=== PATIENT | male | born 1950 | race Caucasian/White ===

== ENCOUNTER 2016-09-04 09:57 | Day surgery (SDC) | payer MEDICARE, OTHER ==
[~2016-09-04] VITALS: Ht 185.4 cm; Wt 91.6 kg
[~2016-09-04 09:57] MED LIST: ASPI-482 PO; BUPIVAC MPF-EPI 0.5%-1:200000 30 ML VIAL. ONE; CEFAZOLIN 2GM PREMIX 50 ML IV PRN; CHOL20004 PO; DEXAMETHASONE SOD PHOS 20 MG/5 ML VIAL. ONE; FAMOTIDINE 20 MG/2 ML VIAL ONE; FENTANYL PF 100 MCG/2 ML VIAL. IV PRN; FENTANYL PF 100 MCG/2 ML VIAL. ONE; FLAV3.7O MC; HYDROMORPHONE 2 MG/ML VIAL. IV PRN; IV RINGERS,LACTATED 1000ML 1,000 ML IV SCH; LIDOCAINE 1% 1 ML SYRINGE. ID PRN; LIDOCAINE 2% 100 MG/5 ML DISP.SYRIN. ONE; METF500T4 PO; MIDAZOLAM HCL 2 MG/2 ML VIAL. ONE; MORPHINE SULFATE 2 MG/ML DISP.SYRIN. IV PRN; OMEG10006 PO; ONDANSETRON PF 4 MG/2 ML VIAL. IV PRN; ONDANSETRON PF 4 MG/2 ML VIAL. ONE; PROCHLORPERAZINE 10 MG/2 ML VIAL. IV PRN; PROPOFOL 20 ML IV ONE; SIMV40TA PO
[2016-09-04] MEDS ORDERED: APIX2.5T PO (10:22)
[2016-09-04] MEDS ORDERED: METF850T2 PO (10:27)
[2016-09-04] MEDS ORDERED: HYDR12.53 PO (10:28)
[2016-09-04] MEDS ORDERED: LOSA25TA4 PO (10:28)
[2016-09-04 10:36] LABS: BASO % 1 % (0-3); EOS % 1 % (0-3); HEMATOCRIT 35.5 % (39.0-53.0); HEMOGLOBIN 11.8 g/dL (13.0-17.5); LYMPH # 1.6 x10^3/uL (1.0-4.8); LYMPH % 30 % (24-48); MEAN CORPUSCULAR HEMOGLOBIN 26 pg (25-35); MEAN CORPUSCULAR HGB CONC 33 g/dL (31-37); MEAN CORPUSCULAR VOLUME 78 fL (79-100); MONO % 10 % (0-9); NEUT % 59 % (31-73); PLATELET COUNT 96 x10^3/uL (140-400); RED BLOOD COUNT 4.54 x10^6/uL (4.30-5.70); RED CELL DISTRIBUTION WIDTH 15.3 % (11.5-14.5); WHITE BLOOD COUNT 5.3 x10^3/uL (4.0-11.0)
[2016-09-04 10:38] LABS: CALCIUM 9.2 mg/dL (8.5-10.1); GFR 74.8; POTASSIUM 3.9 mmol/L (3.5-5.1)
[2016-09-04] MEDS ORDERED: PROPOFOL 20 ML IV ONE (11:09)
[2016-09-04] MEDS ORDERED: NEOSTIGMINE METHYLSULFATE 5 MG/5 ML SYRINGE. ONE (11:18)
[2016-09-04] MEDS ORDERED: GLYCOPYRROLATE 1 MG/5 ML VIAL. ONE (11:18)
[2016-09-04] MEDS ORDERED: SEVOFLURANE 31 TO 60 MINUTES. IH ONE (11:51)
[2016-09-04] MEDS: FENTANYL PF 100 MCG/2 ML VIAL. IV PRN ×2 (12:11→12:28)
[2016-09-04] MEDS ORDERED: ACETAMINOPHEN INTRAVENOUS 100 ML IV ONE ×2 (12:15→13:15)
--- NOTE | 2016-09-04 12:17 | DISCH ---
DISCHARGE INSTRUCTIONS Condition on Discharge Condition on Discharge: Stable Activity After Discharge Activity Instructions for Disc: Activity as tolerated, Avoid exertion Lifting Instructions after Dis: No heavy lifting Driving Instructions after Dis: Do not drive (3-4 days) Diet after Discharge Diet after Discharge: Regular Wound Incision Care Wound/Incision Care: Ice to area for comfort Other wound/incision instructi: november shower Wednesday Follow-Up Follow up with: Yaw next week ALONSO DOTSON MD Sep 04, 2016 12:17
--- NOTE | 2016-09-04 12:24 | PDOC ---
BRIEF OPERATIVE NOTE Date: Sep 04, 2016 Pre-Op Diagnosis left inguinal hernia Post-Op Diagnosis same, indirect, lipoma of cord Procedure Performed repair with mesh Surgeon Yaw Anesthesia Type: General Blood Loss 10cc IV Fluid 800cc Specimens Obtained cord lipoma Findings indirect hernia, cord lipoma Complications none Additional Remarks # [id number] ALONSO DOTSON MD Sep 04, 2016 12:24
[2016-09-04] MEDS ORDERED: OXYC-323 PO (12:26)
[2016-09-04] MEDS ORDERED: OXYCODONE/APAP 5/325 TABLET. PO ONE (12:30)
[2016-09-04 12:55] VITALS: BP 113/58
--- NOTE | 2016-09-04 17:01 | OP ---
DATE OF SURGERY: 09/04/2016 PREOPERATIVE DIAGNOSIS: Left inguinal hernia. POSTOPERATIVE DIAGNOSES: Left inguinal hernia, indirect, and lipoma of the cord. PROCEDURE: Repair of mesh, excision lipoma of the cord. SURGEON: Alonso Dotson M.D. ANESTHESIA: General. ESTIMATED BLOOD LOSS: 10. IV FLUID: 800. INDICATIONS: The patient is a 66-year-old with left inguinal fullness and pain, brought for repair. OPERATIVE FINDINGS: A small indirect hernia sac was identified. A large cord lipoma was present. DESCRIPTION OF PROCEDURE: The patient brought to the operating suite, given a general endotracheal anesthetic, and the left groin was prepped and draped in usual sterile fashion. 0.5% Marcaine with epinephrine was used to infiltrate the skin and subcutaneous tissue along the incision line. Incision was made, dissection carried down to the external oblique fascia. Bleeders were cauterized as identified. The fascia was opened in direction of its fibers, extended through the external ring. Cord structures were swept off the pubis and a [place] drain placed around it. A large cord lipoma was harvested with LigaSure dissection. An indirect hernia sac was identified, skeletonized and reduced. This was held in reduction with a small piece of mesh. The precut "keyhole" patch was then placed over the floor of the canal. The slit closed with a single 2-0 PDS stitch and the area checked for adequate hemostasis. When present and a correct sponge count had been obtained, the cord was returned to its normal anatomical position. External oblique fascia closed over a running fashion with 3-0 Vicryl. Subq approximated with 3-0 Vicryl, skin closed with a subcuticular 4-0 Monocryl. Steri-Strips and sterile dressings applied. Prior to emergence from anesthesia, digital rectal exam failed to reveal evidence of prostatic enlargement or nodularity. The patient was awakened from his anesthetic and taken to the recovery room in satisfactory condition. ALONSO DOTSON MD DR: TYOSN/suzette JOB#: [id number] / [id number]
--- NOTE | 2016-09-07 14:10 | PATHOLOGY ---
PATHOLOGY REPORT * * * * * * * * FINAL DIAGNOSIS: Segment of fibroadipose tissue, left inguinal hernia repair: - Consistent with lipoma of cord. (JPM:csd; d/t: 09/07/2016) REPORT ELECTRONICALLY SIGNED BY: Jass Doss M.D. DATE/TIME: 09/07/2016 14:09 * * * * * * * * GROSS PATHOLOGY: Received in formalin labeled "Wil Keita, lipoma of the cord," is a segment of lobulated fibroadipose tissue measuring 4.1 x 3.2 x 1.6 cm in maximum dimensions. Sectioning reveals homogeneous, bright yellow cut surfaces. 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 (CAA; 09/04/2016) INITIAL CPT CODE(S): A; 01882 Professional services [place] [facility] [place] [address] Technical services performed by [facility] at [address] [place] [address] [address], [place] [address]. SPECIMEN(S) RECEIVED: A.Lipoma of the cord CLINICAL HISTORY: Left inguinal hernia PATIENT: WIL KEITA /AGE: 8 1950 (Age: 66) PATIENT #: [id number] ALT CASE #: SPECIMEN COLLECTION DATE: 09/04/2016 SPECIMEN RECEIVED DATE: 09/04/2016 [facility] - [address] [place] [address] - PHONE: [phone] * * * END OF REPORT * * *
== END 2016-09-04 13:31 | disposition home or self-care (01) ==
LOC: SURG 09:57
PROVIDERS: ATTEND Surgery
DX: K40.90 Unilateral inguinal hernia, without obstruction or gangrene, not specified as recurrent (principal); D17.6 Benign lipomatous neoplasm of spermatic cord; I10 Essential (primary) hypertension; E11.9 Type 2 diabetes mellitus without complications; M19.90 Unspecified osteoarthritis, unspecified site; Z90.49 Acquired absence of other specified parts of digestive tract
CPT/HCPCS: 36415; 49505; 80048; 82040; 85027; 88304; C1769; C1781; J0131; J0690; J1100; J2250; J2405; J2704; J2710; J3010; J3490; J7120; S0028

== ENCOUNTER 2016-10-14 13:17 | Inpatient (IN) | payer MEDICARE, OTHER ==
[~2016-10-14] VITALS: Ht 185.4 cm; Wt 87.6 kg
[~2016-10-14 13:17] MED LIST changes: +APIX2.5T PO; -BUPIVAC MPF-EPI 0.5%-1:200000 30 ML VIAL. ONE; -CEFAZOLIN 2GM PREMIX 50 ML IV PRN; -DEXAMETHASONE SOD PHOS 20 MG/5 ML VIAL. ONE; -FAMOTIDINE 20 MG/2 ML VIAL ONE; -FENTANYL PF 100 MCG/2 ML VIAL. IV PRN; -FENTANYL PF 100 MCG/2 ML VIAL. ONE; +HYDR12.53 PO; -HYDROMORPHONE 2 MG/ML VIAL. IV PRN; -IV RINGERS,LACTATED 1000ML 1,000 ML IV SCH; -LIDOCAINE 1% 1 ML SYRINGE. ID PRN; -LIDOCAINE 2% 100 MG/5 ML DISP.SYRIN. ONE; +LOSA25TA4 PO; +METF850T2 PO; -MIDAZOLAM HCL 2 MG/2 ML VIAL. ONE; -MORPHINE SULFATE 2 MG/ML DISP.SYRIN. IV PRN; -ONDANSETRON PF 4 MG/2 ML VIAL. IV PRN; -ONDANSETRON PF 4 MG/2 ML VIAL. ONE; +OXYC-323 PO; -PROCHLORPERAZINE 10 MG/2 ML VIAL. IV PRN; -PROPOFOL 20 ML IV ONE
[2016-10-14 15:00] VITALS: BP 124/76
[2016-10-14 15:26] LABS: BASO % 1 % (0-3); EOS % 1 % (0-3); HEMATOCRIT 35.8 % (39.0-53.0); HEMOGLOBIN 11.7 g/dL (13.0-17.5); LYMPH # 1.9 x10^3/uL (1.0-4.8); LYMPH % 34 % (24-48); MEAN CORPUSCULAR HEMOGLOBIN 26 pg (25-35); MEAN CORPUSCULAR HGB CONC 33 g/dL (31-37); MEAN CORPUSCULAR VOLUME 80 fL (79-100); MONO % 8 % (0-9); NEUT % 57 % (31-73); PLATELET COUNT 110 x10^3/uL (140-400); RED BLOOD COUNT 4.47 x10^6/uL (4.30-5.70); RED CELL DISTRIBUTION WIDTH 15.2 % (11.5-14.5); WHITE BLOOD COUNT 5.7 x10^3/uL (4.0-11.0)
[2016-10-14] MEDS: IV NORMAL SALINE 1000ML BAG 1,000 ML IV SCH (15:30)
[2016-10-14 15:36] LABS: INR 1.7 (0.8-1.1); PROTHROMBIN TIME PATIENT 19.3 SEC (11.7-14.0)
[2016-10-14 15:37] LABS: CALCIUM 9.6 mg/dL (8.5-10.1); GFR 74.8; POTASSIUM 3.6 mmol/L (3.5-5.1)
[2016-10-14] MEDS ORDERED: IOHEXOL 300 MG/ML 75 ML VIAL IV ONE (15:45)
[2016-10-14] MEDS ORDERED: CONTRAST GIVEN MC PRN (16:00)
[2016-10-14] MEDS ORDERED: METF750T2 PO (16:27)
[2016-10-14] MEDS ORDERED: CHOL500016 PO (16:28)
--- NOTE | 2016-10-14 16:42 | RAD ---
CT of the abdomen and pelvis with contrast, 10/14/2016: History: Left-sided pain, enlarged spleen Multidetector CT imaging was performed following an IV bolus injection of iodinated contrast material. No oral contrast material was administered for this exam. Comparison is made to an outside study from 08/17/2016. The spleen is enlarged. It currently measures 22.9 cm in craniocaudad extent compared to a measurement of 21.2 cm on the previous study. There are mild heterogeneous peripheral densities, best seen along the lateral aspect of the spleen. These low density areas are more prominent than on the previous study, however, comparison of the previous noncontrast scan to the current enhanced study is not entirely accurate. The spleen can also normally enhance in a heterogeneous pattern. No perisplenic hemorrhage or hemoperitoneum is seen. A small rounded density along the medial aspect of the spleen is compatible with an accessory spleen. No hepatic abnormality is detected. The gallbladder is surgically absent. The pancreas shows no abnormality. The kidneys are unremarkable. There is moderate calcific plaquing of the abdominal aorta and its branches without evidence of aneurysm. No abdominal or pelvic adenopathy is seen. The bowel loops are not dilated. There are surgical clips anteriorly in the right lower quadrant. No free air is evident in the abdomen. There are mild streaky subcutaneous densities at the left groin level compatible with the history of recent inguinal hernia surgery. IMPRESSION: 1. Moderate splenomegaly which has worsened slightly since 08/17/2016. 2. Heterogeneous areas of decreased density in the spleen are now evident as described above. This may represent heterogeneous enhancement due to tumor infiltration, better demonstrated on the current postcontrast scans versus the prior noncontrast study, or splenic infarcts. Acute subcapsular hemorrhage cannot be excluded. PQRS Compliance Statement: One or more of the following individualized dose reduction techniques were utilized for this examination: 1. Automated exposure control 2. Adjustment of the mA and/or kV according to patient size 3. Use of iterative reconstruction technique
[2016-10-14] MEDS ORDERED: OXYCODONE/APAP 5/325 TABLET. PO PRN (17:00)
--- NOTE | 2016-10-14 17:04 | PDOC1 ---
History and Physical Date of Admission Date of Admission DATE: 10/14/16 TIME: 16:56 Identification/Chief Complaint Chief Complaint left upper quadrant pain, weight loss Source Source: Patient History of Present Illness History of Present Illness Wil is a 66 yo gentleman who I know from recent inguinal hernia repair was seen at the [facility] for LUQ pain. His exam suggested a palpable spleen 5- 6 cm below the costal margin. He had a CT done in July of this year that reported "moderate splenomegaly". He is admitted for further evaluation of his splenic enlargement and oncology evaluation. Past Medical History Cardiovascular: CAD, HTN, Other (s/p stents 2009, pacemaker 2014) Pulmonary: No pertinent hx GI: Other (previous exploration for SBO) Heme/Onc: No pertinent hx Endocrine: No pertinent hx Past Surgical History Past Surgical History: Pacemaker, Hernia Repair, Other (ex-lap to release SBO) Family History Family History: No Significant Social History Smoke: No ALCOHOL: rare Current Medications Current Medications Current Medications Sodium Chloride (Iv Sodium Chloride 0.9% 1000ml Bag) 1,000 ml @ 100 mls/hr Q10H IV Last administered on 10/14/16 15:30; Start 10/14/16 at 15:30 Iohexol (Omnipaque 300 Mg/ml) 75 ml 1X ONCE IV Last administered on 10/14/16 16:01; Start 10/14/16 at 15:45; Stop 10/14/16 at 15:49; Status DC Info (Do NOT chart on this entry -- for MONITORING) 1 each PRN DAILY PRN MC SEE COMMENTS; Start 10/14/16 at 16:00; Stop 10/16/16 at 15:59 Active Scripts Active Reported Vitamin D3 (Cholecalciferol (Vitamin D3)) 5,000 Unit Tablet 1 Tab PO DAILY Metformin Hcl Er (Metformin Hcl) 750 Mg Tab.er.24h 1 Tab PO BID Losartan Potassium 25 Mg Tablet 25 Mg PO DAILY Hydrochlorothiazide Capsule (Hydrochlorothiazide) 12.5 Mg Capsule 12.5 Mg PO DAILY Eliquis (Apixaban) 2.5 Mg Tablet 5 Mg PO BID Pv Fish Oil 1,000 Mg Softgel ([place]-3 Fatty Acids/Vitamin E) 1,000 Mg Capsule 1 Cap PO DAILY Zocor (Simvastatin) 40 Mg Tablet 1 Tab PO DAILY Allergies Allergies: Uncoded Allergies: NIASPAN (Allergy, Intermediate, 2/10/17) ROS General: YES: Other (weight loss ) Hematological and Lymphatic: YES: Other (splenomegaly) Physical Exam General: Alert, Oriented X3, Cooperative, No acute distress HEENT: Atraumatic Lungs: Clear to auscultation Heart: RRR Abdomen: Soft, Other (palpable spleen tip, some mild TTP LUQ) Rectal Exam: not examined Neuro: Normal speech Psych/Mental Status: Mental status NL Vitals Vitals Vital Signs Date Time Temp Pulse Resp B/P Pulse Ox O2 Delivery O2 Flow Rate FiO2 10/14/16 15:00 98.0 75 18 124/76 97 Room Air 98.0 Labs Labs Laboratory Tests Test 10/14/16 15:15 White Blood Count 5.7x10^3/uL (4.0-11.0) Red Blood Count 4.47x10^6/uL (4.30-5.70) Hemoglobin 11.7g/dL (13.0-17.5) Hematocrit 35.8% (39.0-53.0) Mean Corpuscular Volume 80fL (79-100) Mean Corpuscular Hemoglobin 26pg (25-35) Mean Corpuscular Hemoglobin Concent 33g/dL (31-37) Red Cell Distribution Width 15.2% (11.5-14.5) Platelet Count 110x10^3/uL (140-400) Neutrophils (%) (Auto) 57% (31-73) Lymphocytes (%) (Auto) 34% (24-48) Monocytes (%) (Auto) 8% (0-9) Eosinophils (%) (Auto) 1% (0-3) Basophils (%) (Auto) 1% (0-3) Neutrophils # (Auto) 3.2x10^3uL (1.8-7.7) Lymphocytes # (Auto) 1.9x10^3/uL (1.0-4.8) Monocytes # (Auto) 0.5x10^3/uL (0.0-1.1) Eosinophils # (Auto) 0.0x10^3/uL (0.0-0.7) Basophils # (Auto) 0.0x10^3/uL (0.0-0.2) Prothrombin Time 19.3SEC (11.7-14.0) Prothromb Time International Ratio 1.7 (0.8-1.1) Sodium Level 141mmol/L (136-145) Potassium Level 3.6mmol/L (3.5-5.1) Chloride Level 103mmol/L (98-107) Carbon Dioxide Level 27mmol/L (21-32) Anion Gap 11 (6-14) Blood Urea Nitrogen 25mg/dL (8-26) Creatinine 1.0mg/dL (0.7-1.3) Estimated GFR (Cockcroft-Gault) 74.8 Glucose Level 108mg/dL (70-99) Calcium Level 9.6mg/dL (8.5-10.1) Laboratory Tests Test 10/14/16 15:15 White Blood Count 5.7x10^3/uL (4.0-11.0) Red Blood Count 4.47x10^6/uL (4.30-5.70) Hemoglobin 11.7g/dL (13.0-17.5) Hematocrit 35.8% (39.0-53.0) Mean Corpuscular Volume 80fL (79-100) Mean Corpuscular Hemoglobin 26pg (25-35) Mean Corpuscular Hemoglobin Concent 33g/dL (31-37) Red Cell Distribution Width 15.2% (11.5-14.5) Platelet Count 110x10^3/uL (140-400) Neutrophils (%) (Auto) 57% (31-73) Lymphocytes (%) (Auto) 34% (24-48) Monocytes (%) (Auto) 8% (0-9) Eosinophils (%) (Auto) 1% (0-3) Basophils (%) (Auto) 1% (0-3) Neutrophils # (Auto) 3.2x10^3uL (1.8-7.7) Lymphocytes # (Auto) 1.9x10^3/uL (1.0-4.8) Monocytes # (Auto) 0.5x10^3/uL (0.0-1.1) Eosinophils # (Auto) 0.0x10^3/uL (0.0-0.7) Basophils # (Auto) 0.0x10^3/uL (0.0-0.2) Prothrombin Time 19.3SEC (11.7-14.0) Prothromb Time International Ratio 1.7 (0.8-1.1) Sodium Level 141mmol/L (136-145) Potassium Level 3.6mmol/L (3.5-5.1) Chloride Level 103mmol/L (98-107) Carbon Dioxide Level 27mmol/L (21-32) Anion Gap 11 (6-14) Blood Urea Nitrogen 25mg/dL (8-26) Creatinine 1.0mg/dL (0.7-1.3) Estimated GFR (Cockcroft-Gault) 74.8 Glucose Level 108mg/dL (70-99) Calcium Level 9.6mg/dL (8.5-10.1) Images Images CT abd/pelvis reviewed with radiologist VTE Prophylaxis Ordered VTE Prophylaxis Devices: Yes VTE Pharmacological Prophylaxi: No Assessment/Plan Assessment/Plan splenomegaly weight loss CAD Dr Jennifer Hess asked to see Await her recommendations ALONSO DOTSON MD Oct 14, 2016 17:04
--- NOTE | 2016-10-14 17:17 | PDOC ---
Provider Note Provider Note Onc consult dictated- [id number] Splenomegaly, worsened since 08/04 Mild anemia and thrombocytopenia Weight loss Ordered bmbx. If path neg, will need splenectomy but should have ppx vaccines 2 wk beforehand. I can f/u path as outpt next week if stable for DC. D/W Dr. Tidwell. DACIA LECHUGA DO Oct 14, 2016 17:16
[2016-10-14 19:20] VITALS: BP 125/64
[2016-10-14] MEDS ORDERED: SIMVASTATIN 40 MG TABLET. PO SCH (21:00)
--- NOTE | 2016-10-14 22:37 | EKG ---
[facility] [address] [place] [address] Test Date: 2016-10-14 Test Time: 21:29:56 Pat Name: MORAIMA CORONA Department: Room: [facility] Gender: M Trapper Animal: : 1950 Requested By: ALONSO DOTSON Order Number: [id number] Reading MD: Nancy Alvarado Measurements Intervals [place] Rate: 63 P: SC: QRS: 31 QRSD: 86 T: 31 QT: 390 QTc: 402 Interpretive Statements SINUS RHYTHM, LOW LIMB LEAD VOLTAGE NO SPECIFIC ECG ABNORMALITIES RI6.01 Unconfirmed report No previous ECG available for comparison Electronically Signed On 10-18-2016 18:12:17 CDT by Nancy Alvarado
[2016-10-14 23:15] VITALS: BP 103/40
[2016-10-15] VITALS (15 sets, daily range): BP systolic 99–135; BP diastolic 52–75
[2016-10-15] MEDS: IV NORMAL SALINE 1000ML BAG 1,000 ML IV SCH ×2 (00:34→11:30)
--- NOTE | 2016-10-15 01:15 | CONS ---
DATE OF CONSULTATION: 10/14/2016 REFERRING PROVIDER: Dr. Tidwell. REASON FOR CONSULTATION: Splenomegaly. HISTORY OF PRESENT ILLNESS: The patient is a 66-year-old male who presented for her postop appointment following a recent inguinal hernia repair. He was noted to have left lower quadrant pain. However, he intermittently has had this previously, though previously has been relieved by bowel movements. The pain continued and eventually the patient could feel his own spleen in the left lower quadrant of his abdomen. A CT of the abdomen was completed showing worsening splenomegaly from a previous scan on 08/17/2016. Previously, the spleen measured 21 cm, now it is 23 cm. There are no other associated adenopathy. Also of note, the spleen was noted to have had heterogenous areas of decreased density which were new. These could be tumor infiltration, splenic infarcts or subcapsular hemorrhage. Clinically, the patient is overall stable. He has lost approximately 30 pounds unintentionally in the last 9 months; however. He denies any fevers, chills or drenching night sweats. His hemoglobin here is noted to be 11.7, platelets 110. The differential is normal and his WBC is normal as well. PAST MEDICAL HISTORY: Two previous small bowel obstructions, one treated surgically and one conservatively. Heart disease, hyperlipidemia, atrial fibrillation, diabetes, sleep apnea and hypertension. PAST SURGICAL HISTORY: Bilateral inguinal hernia repair with the left side done recently, appendectomy, cholecystectomy, PCI in 2009, pacemaker in 2014. FAMILY HISTORY: Father with heart disease. Mom is still alive and healthy. There is a strong maternal side history of colon cancer. Two of his siblings have atrial fibrillation. SOCIAL HISTORY: He is still working in computer programming. He is . He quit smoking in the after having smoked for 20 years. He does not drink any alcohol. ALLERGIES: NIASPAN. CURRENT MEDICATIONS: Colace, Percocet, normal saline. REVIEW OF SYSTEMS: Twelve point review of systems completed and unremarkable with the exception of the left-sided abdominal pain with any sneezing or pushing on his abdomen and the weight loss. PHYSICAL EXAMINATION: VITAL SIGNS: Temperature 98.0, pulse 75, respiratory rate 18, blood pressure 124/76, 97% O2 on room air. GENERAL: He is alert and oriented. He appears to overall be in excellent health. He is not in any distress. HEENT: No scleral icterus. Mucous membranes are moist. CARDIOVASCULAR: Heart is regular in rhythm and rate. LUNGS: Clear to auscultation bilaterally. ABDOMEN: Does reveal splenomegaly approximately 6 cm below the left costal margin. There is some mild tenderness to palpation. No obvious hepatomegaly. EXTREMITIES: No edema. NEUROLOGIC: No focal deficits. LYMPHS: No concerning supraclavicular or cervical adenopathy. IMAGING AND LABORATORY DATA: Previous CT and CBCs reviewed as above. ASSESSMENT AND PLAN: The patient is a 66-year-old male with the following medical problems: 1. Worsening splenomegaly, now measuring approximately 23 cm and palpable to the patient, sometimes causing left upper quadrant abdominal pain. 2. Mild normocytic anemia. 3. Mild thrombocytopenia. We discussed that the differential would include an underlying myelofibrosis, which could cause cytopenias and splenomegaly; however, generally the blood counts are much worse if that is the case. He also could have an underlying myeloproliferative disease such as CML. However, generally this is associated with elevated blood counts, which are not present. He could also have an isolated splenic lymphoma with the splenomegaly causing some mild cytopenias beginning to develop. I do not think it is infectious such as mononucleosis given the chronicity and lack of other symptoms. He does not have other adenopathy to suggest a systemic lymphoma. At this time, I would recommend a bone marrow biopsy to evaluate the marrow first. If it is unremarkable, he could proceed with a splenectomy which would be both diagnostic and therapeutic. If a splenectomy is needed, generally it is recommended to have Haemophilus influenzae, pneumococcal, and meningococcal vaccines 2 weeks beforehand to help prevent future bacterial infections with encapsulated organisms. I discussed this information with Dr. Tidwell. I have ordered the bone marrow biopsy, which will hopefully be done tomorrow. If his pain is controlled, I could follow up with him in clinic in 1 week to review the pending bone marrow biopsy results. DACIA LECHUGA DO DR: GRISELDA/suzette JOB#: [id number] / [id number] BERLY
[2016-10-15 08:14] LABS: BASO % 1 % (0-3); EOS % 1 % (0-3); HEMATOCRIT 32.7 % (39.0-53.0); HEMOGLOBIN 10.6 g/dL (13.0-17.5); LYMPH # 1.6 x10^3/uL (1.0-4.8); LYMPH % 35 % (24-48); MEAN CORPUSCULAR HEMOGLOBIN 26 pg (25-35); MEAN CORPUSCULAR HGB CONC 33 g/dL (31-37); MEAN CORPUSCULAR VOLUME 81 fL (79-100); MONO % 11 % (0-9); NEUT % 53 % (31-73); PLATELET COUNT 106 x10^3/uL (140-400); RED BLOOD COUNT 4.05 x10^6/uL (4.30-5.70); WHITE BLOOD COUNT 4.7 x10^3/uL (4.0-11.0)
[2016-10-15 08:23] LABS: INR 1.6 (0.8-1.1); PROTHROMBIN TIME PATIENT 17.8 SEC (11.7-14.0)
[2016-10-15] MEDS ORDERED: LIDOCAINE 1% / SOD BICARB 8.4% 20 ML VIAL. IJ ONE ×2 (08:52→09:45)
[2016-10-15] MEDS ORDERED: HYDROCHLOROTHIAZIDE 12.5 MG CAPSULE. PO SCH (09:00)
[2016-10-15] MEDS ORDERED: DOCUSATE SODIUM 100 MG CAPSULE. PO SCH (09:00)
[2016-10-15] MEDS ORDERED: LOSARTAN POTASSIUM 25 MG TABLET. PO SCH (09:00)
[2016-10-15] MEDS ORDERED: MIDAZOLAM HCL/PF 5 MG/5 ML VIAL. ONE (09:26)
[2016-10-15] MEDS ORDERED: FENTANYL PF 250 MCG/5 ML VIAL. ONE (09:26)
[2016-10-15] MEDS ORDERED: FENTANYL PF 250 MCG/5 ML VIAL. IV ONE (09:40)
[2016-10-15] MEDS ORDERED: MIDAZOLAM HCL/PF 5 MG/5 ML VIAL. IV ONE (09:40)
--- NOTE | 2016-10-15 10:16 | PDOC ---
MODERATE SEDATION ASSESSMENT RISKS/ALTERNATIVES Risks/Alternatives Risks and alternatives of this type of sedation and procedure discussed with: RISK/ALTERNATIVES: Patient H & P ON CHART H & P H & P on chart and reviewed for co-morbid conditions and appropriate labs. H&P ON CHART: Yes STATUS PREG STATUS ASSESSED: N/A MEDS/ALLERGIES REVIEWED Meds/Allergies Reviewed Medications and Allergies including time and route of recently administered narcotics and sedatives. MEDS/ALLERGIES REVIEWED: Yes ASA RATING ASA RATING: II AIRWAY ASSESSMENT Airway Assessment Airway patency, oral function limitations, presence of caps, crowns, dentures, partials, and ability to extend neck assessed. AIRWAY ASSESSMENT: Yes MALLAMPATI SCORE MALLAMPATI SCORE: II PRE-SEDATION ASSESSMENT PRE-SEDATION ASSESSMENT: Yes DEMETRI ARAIZA MD Oct 15, 2016 10:16
--- NOTE | 2016-10-15 10:19 | PDOC ---
Exam Cell Cleaner Cell Cleaner Mitesh Pre-Procedure Diagnosis Pre-Procedure Diagnosis 66 YO male with splenomegaly, anemia, and thrombocytopenia. Post-Procedure Diagnosis Post-Procedure Diagnosis Same Procedure Performed Procedure Performed CT guided bone marrow asp/bx Type of Anesthesia Type of Anesthesia Local + Mod sedation Estimated Blood Loss EBL: Minimal Specimens Specimans 6 cc bone marrow aspirate + 1 11G core bx-----to heme-path Condition of Patient Condition of Patient Stable. No apparent complication. Disposition Disposition From IR return to [facility]. F/u with Dr Hess. Full report to follow. DEMETRI ARAIZA MD Oct 15, 2016 10:19
--- NOTE | 2016-10-15 12:15 | PDOC ---
SURGICAL PROGRESS NOTE Subjective no complaints tolerated BMB well just ate regular lunch Vital Signs Vital Signs Date Time Temp Pulse Resp B/P Pulse Ox O2 Delivery O2 Flow Rate FiO2 10/15/16 11:00 63 104/62 98 BiPAP/CPAP 10/15/16 10:30 97.4 18 97.4 10/15/16 09:55 2.0 I&O Intake and Output 10/15/16 07:00 Intake Total 540 ml Balance 540 ml Intake Oral 540 ml # Voids 2 PATIENT HAS A BRAUN: No General: Alert, Oriented X3, Cooperative, No acute distress Abdomen: Soft Labs Laboratory Tests Test 10/14/16 15:15 10/14/16 17:31 10/15/16 06:20 10/15/16 07:37 White Blood Count 5.7x10^3/uL (4.0-11.0) 4.7x10^3/uL (4.0-11.0) Red Blood Count 4.47x10^6/uL (4.30-5.70) 4.05x10^6/uL (4.30-5.70) Hemoglobin 11.7g/dL (13.0-17.5) 10.6g/dL (13.0-17.5) Hematocrit 35.8% (39.0-53.0) 32.7% (39.0-53.0) Mean Corpuscular Volume 80fL (79-100) 81fL (79-100) Mean Corpuscular Hemoglobin 26pg (25-35) 26pg (25-35) Mean Corpuscular Hemoglobin Concent 33g/dL (31-37) 33g/dL (31-37) Red Cell Distribution Width 15.2% (11.5-14.5) 15.0% (11.5-14.5) Platelet Count 110x10^3/uL (140-400) 106x10^3/uL (140-400) Neutrophils (%) (Auto) 57% (31-73) 53% (31-73) Lymphocytes (%) (Auto) 34% (24-48) 35% (24-48) Monocytes (%) (Auto) 8% (0-9) 11% (0-9) Eosinophils (%) (Auto) 1% (0-3) 1% (0-3) Basophils (%) (Auto) 1% (0-3) 1% (0-3) Neutrophils # (Auto) 3.2x10^3uL (1.8-7.7) 2.5x10^3uL (1.8-7.7) Lymphocytes # (Auto) 1.9x10^3/uL (1.0-4.8) 1.6x10^3/uL (1.0-4.8) Monocytes # (Auto) 0.5x10^3/uL (0.0-1.1) 0.5x10^3/uL (0.0-1.1) Eosinophils # (Auto) 0.0x10^3/uL (0.0-0.7) 0.0x10^3/uL (0.0-0.7) Basophils # (Auto) 0.0x10^3/uL (0.0-0.2) 0.0x10^3/uL (0.0-0.2) Prothrombin Time 19.3SEC (11.7-14.0) 17.8SEC (11.7-14.0) Prothromb Time International Ratio 1.7 (0.8-1.1) 1.6 (0.8-1.1) Sodium Level 141mmol/L (136-145) Potassium Level 3.6mmol/L (3.5-5.1) Chloride Level 103mmol/L (98-107) Carbon Dioxide Level 27mmol/L (21-32) Anion Gap 11 (6-14) Blood Urea Nitrogen 25mg/dL (8-26) Creatinine 1.0mg/dL (0.7-1.3) Estimated GFR (Cockcroft-Gault) 74.8 Glucose Level 108mg/dL (70-99) Calcium Level 9.6mg/dL (8.5-10.1) Glucose (Fingerstick) 87mg/dL (70-99) 117mg/dL (70-99) Laboratory Tests Test 10/14/16 15:15 10/14/16 17:31 10/15/16 06:20 10/15/16 07:37 White Blood Count 5.7x10^3/uL (4.0-11.0) 4.7x10^3/uL (4.0-11.0) Red Blood Count 4.47x10^6/uL (4.30-5.70) 4.05x10^6/uL (4.30-5.70) Hemoglobin 11.7g/dL (13.0-17.5) 10.6g/dL (13.0-17.5) Hematocrit 35.8% (39.0-53.0) 32.7% (39.0-53.0) Mean Corpuscular Volume 80fL (79-100) 81fL (79-100) Mean Corpuscular Hemoglobin 26pg (25-35) 26pg (25-35) Mean Corpuscular Hemoglobin Concent 33g/dL (31-37) 33g/dL (31-37) Red Cell Distribution Width 15.2% (11.5-14.5) 15.0% (11.5-14.5) Platelet Count 110x10^3/uL (140-400) 106x10^3/uL (140-400) Neutrophils (%) (Auto) 57% (31-73) 53% (31-73) Lymphocytes (%) (Auto) 34% (24-48) 35% (24-48) Monocytes (%) (Auto) 8% (0-9) 11% (0-9) Eosinophils (%) (Auto) 1% (0-3) 1% (0-3) Basophils (%) (Auto) 1% (0-3) 1% (0-3) Neutrophils # (Auto) 3.2x10^3uL (1.8-7.7) 2.5x10^3uL (1.8-7.7) Lymphocytes # (Auto) 1.9x10^3/uL (1.0-4.8) 1.6x10^3/uL (1.0-4.8) Monocytes # (Auto) 0.5x10^3/uL (0.0-1.1) 0.5x10^3/uL (0.0-1.1) Eosinophils # (Auto) 0.0x10^3/uL (0.0-0.7) 0.0x10^3/uL (0.0-0.7) Basophils # (Auto) 0.0x10^3/uL (0.0-0.2) 0.0x10^3/uL (0.0-0.2) Prothrombin Time 19.3SEC (11.7-14.0) 17.8SEC (11.7-14.0) Prothromb Time International Ratio 1.7 (0.8-1.1) 1.6 (0.8-1.1) Sodium Level 141mmol/L (136-145) Potassium Level 3.6mmol/L (3.5-5.1) Chloride Level 103mmol/L (98-107) Carbon Dioxide Level 27mmol/L (21-32) Anion Gap 11 (6-14) Blood Urea Nitrogen 25mg/dL (8-26) Creatinine 1.0mg/dL (0.7-1.3) Estimated GFR (Cockcroft-Gault) 74.8 Glucose Level 108mg/dL (70-99) Calcium Level 9.6mg/dL (8.5-10.1) Glucose (Fingerstick) 87mg/dL (70-99) 117mg/dL (70-99) Problem List Problems Medical Problems: (1) Splenomegaly, not elsewhere classified Status: Acute Assessment/Plan splenomegaly Hb down today (dilutional?) re check this afternoon if stable could go home if not,keep for serial H&H, possible splenectomy d/w Wil, answered his questions Dr Randall et cody to follow in my absence over the weekend Problems: ALONSO DOTSON MD Oct 15, 2016 12:15
[2016-10-15 15:04] LABS: HEMATOCRIT 33.9 % (39.0-53.0); RED BLOOD COUNT 4.19 x10^6/uL (4.30-5.70); RED CELL DISTRIBUTION WIDTH 14.8 % (11.5-14.5); WHITE BLOOD COUNT 4.4 x10^3/uL (4.0-11.0)
--- NOTE | 2016-10-15 15:51 | RAD ---
CT-guided power drill assisted bone marrow aspiration and biopsy Indication: 66-year-old male with splenomegaly, anemia, and thrombocytopenia. CT-guided bone marrow aspirate/biopsy has been requested by hematology-oncology. Anesthesia: 21 minutes moderate sedation was provided utilizing a total of 3 mg Versed and 150 mcg fentanyl, IV. The patient was appropriately monitored by a qualified independent observer throughout the time of moderate sedation. Procedure: Informed consent was obtained from the patient. He was placed prone on the CT scanner. Preliminary noncontrast CT images were obtained through pelvis. A left posterior skin site suitable for CT-guided bone marrow aspirate/biopsy from posterior left iliac bone was selected and marked. That area was prepped and draped in the usual sterile fashion. Conscious sedation was provided with IV Versed and fentanyl. Using aseptic technique, local anesthesia, and CT guidance, and the [employer] power meals on wheels driver, successful percutaneous entry was achieved through posterior cortex of left iliac bone. Approximately 5 cc of bone marrow was promptly aspirated, and was submitted to hematology personnel in the CT suite. Using CT guidance, the [employer] power meals on wheels driver was then utilized to obtain a single, 11-gauge core biopsy sample from marrow cavity of left iliac bone. Touch preparations were then made from the core biopsy sample which was then submitted to pathology in formalin. A sterile dressing was applied over the biopsy skin puncture site. Patient tolerated the procedure well without apparent complication. Impression: Successful, uneventful CT-guided bone marrow aspirate and biopsy, utilizing the [employer] power meals on wheels driver biopsy system, as described. PQRS compliance statement: One or more of the following individualized dose reduction techniques were utilized for this CT procedure: 1. Automated exposure control. 2. Adjustment of MA and/or KV according to patient size. 3. Iterative reconstruction technique.
[2016-10-16] MEDS ORDERED: METFORMIN 500 MG TABLET. PO SCH (17:00)
--- NOTE | 2016-10-19 22:01 | PATHOLOGY ---
PATHOLOGY REPORT * * * * * * * * FINAL DIAGNOSIS: Bone marrow aspirate, biopsy, cell clot and peripheral blood: - Peripheral blood with mild normocytic to mildly microcytic anemia and mild thrombocytopenia. 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 (SEE COMMENT) SYNOPTIC CANCER STAGING REPORT Tumor Site: Bone marrow SPECIMEN Specimen: Peripheral blood smear Bone marrow aspiration Bone marrow aspirate clot (cell block) Bone marrow core (trephine) biopsy Procedure: Aspiration -Aspiration Site: --Not specified Biopsy -Biopsy Site: --Not specified TUMOR Histologic Type (Based on the 2008 WHO Classification): Mature B-cell Neoplasms -B-cell lymphoma, NOS SPECIAL STUDIES Immunophenotyping (flow cytometry and / or immunohistochemistry): Performed, see separate report: flow cytometry [employer] [id number] Cytogenetic Studies: Performed, see separate report: [employer] [id number] COMMENT: Overall, the bone marrow is mildly hypercellular for the patient's age with trilineage hematopoiesis, erythroid hyperplasia, mild dyspoiesis, and involvement by B-cell lymphoma. There is predominantly 30-40% involvement by immunohistochemical staining. Exact subclassification of the B-cell lymphoma should be based on the morphologic evaluation of an involved lymph node and/or lymphoid organ. The patient's splenomegaly is noted and bone marrow involvement by a splenic lymphoma remains within the histologic differential diagnosis. The dyspoiesis is mild and does not meet the morphologic criteria for myelodysplasia. There is no morphologic evidence for myelofibrosis. Correlation with clinical history, radiographic findings, additional laboratory data, and cytogenetics is recommended. Appeals Nurse slides are co-reviewed with Dr. Zoe Mccall. The case is discussed preliminary with Dr. Jennifer Hess on 10/16/16 at approximately 2:30 PM. (CLW:mgr; d/t: 10/19/16) REPORT ELECTRONICALLY SIGNED BY: Rosa Castaneda M.D. DATE/TIME: 10/19/2016 22:00 * * * * * * * * MICROSCOPIC DESCRIPTION: CBC Data (10/15/16): WBC 4,700 /uL, RBC 4.05, hemoglobin 10.6 g/dL, hematocrit 32.7%, MCV 81 fL, MCH 26 pg, MCHC 33 g/dL, RDW 15.0%, and platelet count 106,000 /uL. White blood cell differential: 53% segs, 35% lymphs, 11% monos, 1% eos, and 1% basos. Peripheral Blood Smear: Cytomorphological examination of the Barrett's stained peripheral blood smear confirms the provided data. Red blood cells show mild normocytic to mildly microcytic anemia with no significant anisopoikilocytosis. White blood cells are predominantly segmented neutrophils and are without significant dyspoiesis or significant left shift. Lymphocytes are predominantly small, round, and mature appearing with condensed chromatin and scant cytoplasm with admixed large granular lymphocytes and mildly atypical lymphocytes. No markedly atypical lymphoid cells are seen. Monocytes are mature. Platelets are mildly decreased in number and mainly normal in morphology with rare larger platelets noted. Aspirate Smears: Cytomorphological examination of the Barrett's stained aspirate smears show spicules present. The overall cellularity is approximately 50-60%. The myeloid to erythroid ratio is 1:1. Full myeloid maturation is identified and is without significant dyspoiesis. Erythroid maturation is mildly dyserythropoietic with occasional irregular nuclear contours and nuclear cytoplasmic dyssynchrony. In a 500 cell differential, there are 1% blasts (no Tye rods are seen), 45% more differentiated myeloids, 37% erythroid precursors, and 17% lymphocytes. Megakaryocytes are proportional in number and both normal and abnormal in morphology with variable sizes and nuclear abnormalities. No markedly atypical megakaryocytes are seen. No lymphoid aggregates or markedly atypical lymphoid cells are identified. Lymphocytes are predominantly small, round, and mature appearing with condensed chromatin and scant cytoplasm. Plasma cells are without atypia. Iron stain of the aspirate smear is pending and will be reported as an addendum. Core Biopsy and Cell Clot: The decalcified bone marrow core biopsy is adequate. The bone marrow is hypercellular with an overall cellularity of approximately 60%. The myeloid to erythroid ratio is 1:1. Myeloid maturation is without significant dyspoiesis. Erythroid maturation is mildly dyserythropoietic. Megakaryocytes are normal in number and both normal and abnormal in morphology. Numerous paratrabecular and interstitial lymphoid aggregates composed predominantly of small lymphocytes are noted. Rare larger lymphoid cells are also seen. Bony trabeculae and blood vessels are unremarkable. The cell clot has spicules present that are similar in cellularity and differential morphology as previously described. Again, numerous lymphoid aggregates composed predominantly of small lymphocytes are noted. Again, rare larger lymphoid cells are also identified. Iron stain of the cell clot (block A1) shows 1/4+ iron positivity with spicules present. To confirm the flow cytometry findings and to identify cells in a tissue architectural context, properly controlled immunohistochemical stains are performed: (Block A1) PAX-5: stains the scattered neoplastic B-cells and B-cell aggregates comprising approximately 40% of the marrow cellularity CD3: highlights admixed T-cells CD10: B-cell aggregates are non-reactive BCL-6: B-cell aggregates are essentially non-reactive BCL-2: highlights the aggregates Cyclin D-1: the aggregates are non-reactive Annexin: the aggregates are non-reactive MUM-1: stains rare scattered plasma cells CD138: stains rare scattered plasma cells [place] and lambda in situ hybridization: plasma cells are polyclonal (Block B1) PAX-5: highlights the interstitial and paratrabecular neoplastic B-cell aggregates and scattered B-cells comprising approximately 30% of the marrow cellularity CD3: highlights admixed T-cells CD10: the B-cell aggregates are non-reactive BCL-6: the B-cell aggregates are essentially non-reactive BCL-2: highlights the B-cell aggregates Cyclin D-1: the aggregates are non-reactive Annexin: the aggregates are non-reactive MUM-1: stains rare scattered plasma cells CD138: stains rare scattered plasma cells [place] and lambda in situ hybridization: plasma cells are polyclonal Flow Cytometry: Flow cytometric immunophenotypic analysis was performed at [facility]. The diagnosis is "1-monoclonal B-cell population (8% of total cells) detected, 2-mildly left shifted myeloid maturation with 1.8% CD34 positive blasts." There are 16% lymphocytes. Of the lymphocytes that are mainly small in size by forward light scattered are 37% T-cells with a CD4/CD8 ratio of 1.9, and no aberrant T-cell antigen expression. There are 52% mature B-cells that are lambda monotypic with moderately bright surface light chain expression and express CD19 and moderately bright CD20 and are negative for CD5, CD10, and CD11c. There are 1.5% CD34 positive cells and 1.1% precursor B-cells. Flow cytometry shows a monoclonal B-cell population (8% of total cells) without detectable CD5, CD10, and CD11C expression. The significance of this population is uncertain. Please see separate flow cytometry report from [facility] ([id number]). Cytogenetics: Cytogenetic chromosomal analysis is pending at [facility] ([id number]). GROSS PATHOLOGY: A. Received in formalin labeled "Wil Keita and bm asp clot," is a 1.4 x 1.3 x 0.2 cm red-stinson, rubbery, and irregular soft tissue fragments. The specimen is entirely submitted in cassette A1. B. Received in formalin labeled "Wil Keita" and additionally labeled "Bm bx" on the requisition is a single needle core of stinson bone, measuring 3.2 cm in length and 0.2 cm in diameter. The specimen is submitted entirely in cassette B1, following decalcification. (TTL; 10/15/2016) INITIAL CPT CODE(S): A; 04517, 85764, 49077, 89545, 37594, 92822, 34924, 03902, 66524, 13796, 50955, 77604, 10962 B; 50154, 36070, 12252, 90231, 20783, 20481, 17956, 60111, 47411, 76494, 23906, 85954, 89600 C; 76912, 82498 D; 70009 Professional services performed by [facility] at [facility] [place] [place] [address], [place] [address] Technical services performed by [facility] at [address] [place] [address], [address], [place] [address]. SPECIMEN(S) RECEIVED: A.Bone marrow, clot B.Bone marrow, biopsy C.Bone marrow, aspirate smears D.Peripheral smear CLINICAL HISTORY: Thrombocytopenia, r/o myelofibrosis 66 year-old man with splenomegaly, anemia and thrombocytopenia. PATIENT: WIL KEITA /AGE: 8 1950 (Age: 66) PATIENT #: [id number] ALT CASE #: SPECIMEN COLLECTION DATE: 10/15/2016 SPECIMEN RECEIVED DATE: 10/15/2016 [facility] - [id number] [place] [address] - PHONE: [phone] * * * END OF REPORT * * *
== END 2016-10-15 16:00 | disposition home or self-care (01) | DRG 842 ==
LOC: 6 SOUTH 14:31
PROVIDERS: ADMIT Surgery; ATTEND Surgery
PROC: 07DR3ZX Extraction of Iliac Bone Marrow, Percutaneous Approach, Diagnostic (ICD-10-PCS; principal; 2016-10-14)
PROC: 5A09357 Assistance with Respiratory Ventilation, Less than 24 Consecutive Hours, Continuous Positive Airway Pressure (ICD-10-PCS; 2016-10-14)
DX: C85.10 Unspecified B-cell lymphoma, unspecified site (principal); R16.1 Splenomegaly, not elsewhere classified; R10.12 Left upper quadrant pain; E78.5 Hyperlipidemia, unspecified; G47.30 Sleep apnea, unspecified; E11.9 Type 2 diabetes mellitus without complications; D69.6 Thrombocytopenia, unspecified; D64.9 Anemia, unspecified; I10 Essential (primary) hypertension; I25.10 Atherosclerotic heart disease of native coronary artery without angina pectoris; I48.91 Unspecified atrial fibrillation; R63.4 Abnormal weight loss; Z82.49 Family history of ischemic heart disease and other diseases of the circulatory system; Z80.0 Family history of malignant neoplasm of digestive organs; Z80.8 Family history of malignant neoplasm of other organs or systems; Z87.891 Personal history of nicotine dependence; Z95.0 Presence of cardiac pacemaker; Z88.8 Allergy status to other drugs, medicaments and biological substances
CPT/HCPCS: 36415; 38221; 74177; 77012; 80048; 82947; 85027; 85610; 86850; 86900; 86901; 88184; 88185; 88237; 88305; 88311; 88313; 88341; 88342; 88364; 88365; 93005; G0364; J2250; J3010; J7030; Q9967; G0641

== ENCOUNTER → 2016-10-22 | Outpatient (CLI) | payer MEDICARE, OTHER ==
[2016-10-15 14:40] VITALS: BP 117/57
[~2016-10-22] MED LIST changes: +CHOL500016 PO; +IOHEXOL 300 MG/ML 75 ML VIAL IV ONE; +METF750T2 PO
--- NOTE | 2016-10-22 12:41 | RAD ---
CT of the chest with contrast, 10/22/2016: History: Systemic lymphoma Multidetector CT imaging was performed following an IV bolus injection of iodinated contrast material. There were difficulties with the contrast injection with a small amount of subcutaneous extravasation of contrast. The contrast bolus on the images is therefore poor. Transvenous pacing leads extend into the heart. The heart is within normal limits in size. No mediastinal or hilar adenopathy is seen. No axillary adenopathy is evident. No pulmonary infiltrate or mass is seen. There is no evidence of pleural fluid. There is splenomegaly as also noted on the 10/14/2016 CT abdomen study. It is incompletely delineated on these chest images. There are mild scattered degenerative changes in the spine. IMPRESSION: 1. No significant chest abnormality is detected. 2. Splenomegaly PQRS Compliance Statement: One or more of the following individualized dose reduction techniques were utilized for this examination: 1. Automated exposure control 2. Adjustment of the mA and/or kV according to patient size 3. Use of iterative reconstruction technique
== END | disposition home or self-care (01) ==
LOC: CT 08:25
PROVIDERS: ATTEND Internal Medicine Hematology & Oncology
DX: R16.1 Splenomegaly, not elsewhere classified (principal); D64.9 Anemia, unspecified; D69.6 Thrombocytopenia, unspecified; Z86.79 Personal history of other diseases of the circulatory system; I10 Essential (primary) hypertension; Z95.0 Presence of cardiac pacemaker; E11.9 Type 2 diabetes mellitus without complications; C85.90 Non-Hodgkin lymphoma, unspecified, unspecified site
CPT/HCPCS: 71260; Q9967

== ENCOUNTER → 2019-07-05 | Outpatient (CLI) | payer MEDICARE, OTHER ==
[2016-10-15 14:40] VITALS: BP 117/57
[~2019-07-05] MED LIST changes: -CHOL20004 PO; +CHOL200074 PO; -HYDR12.53 PO; +HYDR12.575 PO; -IOHEXOL 300 MG/ML 75 ML VIAL IV ONE; -LOSA25TA4 PO; +LOSA25TA54 PO; +METF500T16 PO; -METF500T4 PO; -METF750T2 PO; +METF750T39 PO; -METF850T2 PO; +METF850T8 PO; -OXYC-323 PO; +OXYC1TAB15 PO
--- NOTE | 2019-07-05 17:30 | RAD ---
Temporal bone CT Without contrast Clinical indications: Mixed hearing loss.. Technique: Helical CT scanning of both temporal bones was performed. 1 mm reconstructed axial and coronal small [id number] CT images of each temporal bone were generated and reviewed on a computer monitor. Findings: Right temporal bone: There is almost complete opacification of the right mastoid sinus including the aditus ad antrum and there is complete opacification of the middle ear cavity with retraction of the tympanic membrane.The middle ear ossicles are identified and no erosion is seen.The scutum appears normal.The vestibulocochlear complex and semicircular canals are morphologically normal in appearance.The internal auditory canal is unremarkable.No osteolytic process is seen.The facial nerve canal is unremarkable.The jugular foramen is unremarkable. The external ear canal is open.. Left temporal bone: There is almost complete opacification of the left mastoid sinus including the aditus ad antrum and there is complete opacification of the middle ear cavity with retraction of the tympanic membrane.The middle ear ossicles are identified and no erosion is seen.The scutum appears normal.The vestibulocochlear complex and semicircular canals are morphologically normal in appearance.The internal auditory canal is unremarkable.No osteolytic process is seen.The facial nerve canal is unremarkable.The jugular foramen is unremarkable. The external ear canal is open.. IMPRESSION: Bilateral mastoiditis and otitis media with retraction of the tympanic membranes. Incidental note is made of bilateral ethmoid sinusitis with mild mucosal thickening of the sphenoid sinuses bilaterally and the maxillary sinuses bilaterally. Electronically signed by: Luis Alberto London MD (07/05/2019 5:27 PM) [facility]
== END | disposition home or self-care (01) ==
LOC: CT 08:45
PROVIDERS: ATTEND Otolaryngology Otology & Neurotology
DX: H70.93 Unspecified mastoiditis, bilateral (principal); H66.93 Otitis media, unspecified, bilateral; H73.893 Other specified disorders of tympanic membrane, bilateral; H90.8 Mixed conductive and sensorineural hearing loss, unspecified; J32.2 Chronic ethmoidal sinusitis; Z79.82 Long term (current) use of aspirin; Z79.899 Other long term (current) drug therapy; Z87.891 Personal history of nicotine dependence
CPT/HCPCS: 70480